=== PATIENT | male | born 1945 | race Hispanic/Latino ===

== ENCOUNTER → 2019-05-29 | Outpatient (CLI) | payer MEDICARE ==
[~2019-05-29] MED LIST: AMATIZA; AVODART0.5 MG PO; CLOPIDOGREL75 MG PO; GABAPENTIN400 MG PO; GLIMEPERIDE; LANTUS100 UNITS/; PANTOPRAZOLE SO40 MG PO; SULFAMETHOXAZO1 EAC1; SYNTHROID100 MCG PO; TAMSULOSIN HCL0.4 MG; VICTOZA
--- NOTE | 2019-05-29 15:23 | Diagnostic Imaging Report ---
EXAMINATION: KNEE LEFT 1-2 VIEWS INDICATION: Osteoarthritis COMPARISON: None FINDINGS: No acute fracture or dislocation. Alignment is anatomic. Mild tricompartmental degenerative changes with mild joint space narrowing and small osteophyte formation. 9 mm osteochondral loose body in the posterior joint space. Large suprapatellar joint effusion. Diffuse arterial atherosclerotic calcifications. IMPRESSION: No acute osseous injury. Mild degenerative changes. Osteochondral loose body posteriorly. Large suprapatellar joint effusion. Signed by: Pam Calzada MD on 05/29/2019 3:19 PM
== END ==
LOC: RAD 14:49
PROVIDERS: ATTEND Family Medicine
DX: M17.12 Unilateral primary osteoarthritis, left knee (principal)

== ENCOUNTER 2021-07-01 16:53 | Emergency (ER) | payer MEDICARE ==
[~2021-07-01] VITALS: Ht 182.9 cm; Wt 89.4 kg
[2021-07-01] MEDS ORDERED: METFORMIN HCL500 MG PO (17:18)
[2021-07-01] MEDS ORDERED: CRESTOR20 MG (17:18)
[2021-07-01] MEDS ORDERED: BASAGLAR K100 UNIT/1 SQ (17:18)
[2021-07-01] MEDS ORDERED: ARICEPT10 MG PO (17:18)
[2021-07-01] MEDS ORDERED: LEVOTHYROXINE112 MCG PO (17:18)
[2021-07-01] MEDS ORDERED: CYMBALTA30 MG (17:18)
[2021-07-01] MEDS ORDERED: ACETAMINOPHEN/CODEINE 300MG - 30MG TAB PO ONE (17:30)
[2021-07-01] MEDS ORDERED: TRAMADOL HCL 50 MG TAB ONE (18:40)
[2021-07-01] MEDS ORDERED: TRAMADOL HCL 50 MG TAB PO ONE (18:45)
[2021-07-01] MEDS ORDERED: ULTRAM 50MG50 MG PO (18:51)
== END 2021-07-01 19:21 | disposition home or self-care (01) ==
LOC: FSED 17:18
DX: S42.201A Unspecified fracture of upper end of right humerus, initial encounter for closed fracture (principal); S20.211A Contusion of right front wall of thorax, initial encounter; W18.30XA Fall on same level, unspecified, initial encounter; Y93.K1 Activity, walking an animal; I10 Essential (primary) hypertension; E11.9 Type 2 diabetes mellitus without complications; E03.9 Hypothyroidism, unspecified; E78.5 Hyperlipidemia, unspecified
CPT/HCPCS: 71250; 74176; 99283

== ENCOUNTER → 2022-02-07 | Outpatient (CLI) | payer MEDICARE ==
[~2022-02-07] MED LIST changes: +ARICEPT10 MG PO; +BASAGLAR K100 UNIT/1 SQ; +CRESTOR20 MG; +CYMBALTA30 MG; +LEVOTHYROXINE112 MCG PO; +METFORMIN HCL500 MG PO; +ULTRAM 50MG50 MG PO
== END ==
LOC: MRI 08:23
PROVIDERS: ATTEND Family Medicine
DX: R27.0 Ataxia, unspecified (principal)
CPT/HCPCS: 70551

== ENCOUNTER → 2023-07-14 | Day surgery (SDC) | payer MEDICARE ==
[2023-07-12 15:48] LABS: BASOPHILS # (AUTO) 0.1 (0.0-0.1); BASOPHILS % 0.6 % (0.0-1.0); EOSINOPHILS # (AUTO) 0.4 (0.0-0.4); EOSINOPHILS % 2.8 % (0.0-6.0); HEMOGLOBIN 12.9 g/dL (14.0-18.0); LYMPHOCYTES # (AUTO) 2.7 (1.0-3.2); LYMPHOCYTES % 21.6 % (18.0-39.1); MEAN CORPUSCULAR HEMOGLOBIN 30.1 pg (28-32); MEAN CORPUSCULAR HGB CONC 34.9 g/dL (31-35); MEAN CORPUSCULAR VOLUME 86.4 fL (81-99); MONOCYTES # (AUTO) 0.6 (0.2-0.8); MONOCYTES % 4.5 % (4.4-11.3); NEUTROPHILS # (AUTO) 8.5 (2.1-6.9); NEUTROPHILS % 69.3 % (38.7-80.0); PLATELET COUNT 241 x10e3/uL (140-360); RED BLOOD COUNT 4.28 x10e6/uL (4.3-5.7); RED CELL DISTRIBUTION WIDTH 12.9 % (11.7-14.4); WHITE BLOOD COUNT 12.35 x10e3/uL (4.8-10.8)
[~2023-07-14] MED LIST changes: +AMLODIPINE BESYL5 MG PO; +ASPIRIN81 MG PO; -CRESTOR20 MG; +CRESTOR20 MG PO; -CYMBALTA30 MG; +CYMBALTA30 MG PO; +FENTANYL CITRATE/PF 100MCG/2 ML INJ ONE; +HYOSCYAMINE SULFATE 0.5 MG/ML INJ ONE; +LACTATED RINGER'S 1,000 ML ONE; +LIDOCAINE HCL 2% LOCAL INJ 5 ML SDV VIAL INJ ONE; +METOPROLOL SUCC25 MG PO; +PHENYLEPHRINE HCL 1% 10 MG/ML VIAL ONE; +PROPOFOL IV EMULSION 10 MG/ML 20 ML VIAL ONE; +TOUJEO SOL300 UNIT/1 SC; +TRAZODONE HCL50 MG PO
[2023-07-14 10:20] VITALS: TEMP 97.7
[2023-07-14 10:55] VITALS: BP 144/79; PULSE 81; RESP 18; O2SAT 99
== END | disposition home or self-care (01) ==
LOC: OR 08:10
PROVIDERS: ATTEND Internal Medicine Gastroenterology
DX: K22.2 Esophageal obstruction (principal); D3A.092 Benign carcinoid tumor of the stomach; D12.2 Benign neoplasm of ascending colon; D12.8 Benign neoplasm of rectum; K29.40 Chronic atrophic gastritis without bleeding; T18.2XXA Foreign body in stomach, initial encounter; K20.90 Esophagitis, unspecified without bleeding; K59.09 Other constipation; K64.8 Other hemorrhoids; Z71.3 Dietary counseling and surveillance; E11.9 Type 2 diabetes mellitus without complications; I10 Essential (primary) hypertension; D64.9 Anemia, unspecified; M06.9 Rheumatoid arthritis, unspecified; F03.90 Unspecified dementia, unspecified severity, without behavioral disturbance, psychotic disturbance, mood disturbance, and anxiety; F41.9 Anxiety disorder, unspecified; F32.A Depression, unspecified; F17.220 Nicotine dependence, chewing tobacco, uncomplicated; Z71.6 Tobacco abuse counseling; Z88.2 Allergy status to sulfonamides; Z01.810 Encounter for preprocedural cardiovascular examination; Z01.812 Encounter for preprocedural laboratory examination; Z79.82 Long term (current) use of aspirin; Z79.4 Long term (current) use of insulin; Z79.84 Long term (current) use of oral hypoglycemic drugs; Z68.27 Body mass index [BMI] 27.0-27.9, adult; Z87.440 Personal history of urinary (tract) infections
CPT/HCPCS: 36415 ×2; 43239; 43450; 45385; 82948; 85025; 93005; C9113; J1980; J2001; J2371; J2704; J3010; J7121; 45378

== ENCOUNTER 2024-07-05 12:22 | Inpatient (IN) | payer MEDICARE ==
[~2024-07-05] VITALS: Ht 182.9 cm; Wt 91.2 kg
[2024-07-05] VITALS (7 sets, daily range): BP systolic 134–185; BP diastolic 59–94; PULSE 74–86; RESP 17–20; TEMP 97.2–98.4; O2SAT 96–100
[~2024-07-05 12:22] MED LIST changes: -FENTANYL CITRATE/PF 100MCG/2 ML INJ ONE; -HYOSCYAMINE SULFATE 0.5 MG/ML INJ ONE; -LACTATED RINGER'S 1,000 ML ONE; -LIDOCAINE HCL 2% LOCAL INJ 5 ML SDV VIAL INJ ONE; -PHENYLEPHRINE HCL 1% 10 MG/ML VIAL ONE; -PROPOFOL IV EMULSION 10 MG/ML 20 ML VIAL ONE
[2024-07-05] MEDS ORDERED: SODIUM CHLORIDE 0.9% 1000ML 1,000 ML IV SCH (12:45)
[2024-07-05] MEDS ORDERED: ONDANSETRON HCL INJ 2MG/ML 2ML 2 MG/ML VIAL IV PRN (13:45)
[2024-07-05] MEDS ORDERED: Morphine 4mg INJECTION 4 MG/ML INJ IV PRN (13:45)
[2024-07-05 13:52] LABS: BASOPHILS # (AUTO) 0.1 (0.0-0.1); BASOPHILS % 0.6 % (0.0-1.0); EOSINOPHILS # (AUTO) 0.1 (0.0-0.4); HEMATOCRIT 35.6 % (38.2-49.6); HEMOGLOBIN 11.7 g/dL (14.0-18.0); LYMPHOCYTES # (AUTO) 1.9 (1.0-3.2); LYMPHOCYTES % 14.5 % (18.0-39.1); MEAN CORPUSCULAR HEMOGLOBIN 30.5 pg (28-32); MEAN CORPUSCULAR HGB CONC 32.9 g/dL (31-35); MONOCYTES # (AUTO) 0.6 (0.2-0.8); MONOCYTES % 4.7 % (4.4-11.3); PLATELET COUNT 204 x10e3/uL (140-360); RED BLOOD COUNT 3.83 x10e6/uL (4.3-5.7); RED CELL DISTRIBUTION WIDTH 13.4 % (11.7-14.4); WHITE BLOOD COUNT 12.86 x10e3/uL (4.8-10.8)
[2024-07-05 14:13] LABS: ALBUMIN 3.2 g/dL (3.5-5.0); ANION GAP 13.9 mmol/L (8-16); BILIRUBIN,TOTAL 0.4 mg/dL (0.2-1.2); CREATININE, SERUM 1.28 mg/dL (0.72-1.25); POTASSIUM 3.9 mmol/L (3.5-5.1); TOTAL PROTEIN 6.5 g/dL (6.5-8.1)
[2024-07-05] MEDS ORDERED: DEXTROSE 50% SYRINGE 50 ML IV PRN (18:30)
[2024-07-05] MEDS: SODIUM CHLORIDE 0.9% 1000ML 1,000 ML IV SCH (19:13)
[2024-07-05] MEDS: ENOXAPARIN SOD INJ 60 MG/0.6 ML SYR SC ONE (20:46)
[2024-07-05] MEDS: DONEPEZIL HCL 5 MG TAB PO SCH (20:47)
[2024-07-05] MEDS: INSULIN LISPRO 100 UNIT/1 ML 3ML VIAL SQ SCH (20:48)
[2024-07-06] VITALS (9 sets, daily range): BP systolic 126–191; BP diastolic 58–80; PULSE 50–97; RESP 18–20; TEMP 97.1–98.4; O2SAT 94–100
[2024-07-06] MEDS: LEVOTHYROXINE SODIUM 125 MCG TAB PO SCH (05:43)
[2024-07-06 05:52] LABS: BASOPHILS # (AUTO) 0.1 (0.0-0.1); BASOPHILS % 0.8 % (0.0-1.0); EOSINOPHILS # (AUTO) 0.3 (0.0-0.4); EOSINOPHILS % 3.1 % (0.0-6.0); HEMATOCRIT 30.3 % (38.2-49.6); LYMPHOCYTES # (AUTO) 1.8 (1.0-3.2); LYMPHOCYTES % 20.8 % (18.0-39.1); MEAN CORPUSCULAR HEMOGLOBIN 30.4 pg (28-32); MEAN CORPUSCULAR VOLUME 92.1 fL (81-99); MONOCYTES # (AUTO) 0.6 (0.2-0.8); MONOCYTES % 6.6 % (4.4-11.3); NEUTROPHILS # (AUTO) 5.7 (2.1-6.9); NEUTROPHILS % 67.5 % (38.7-80.0); PLATELET COUNT 172 x10e3/uL (140-360); RED BLOOD COUNT 3.29 x10e6/uL (4.3-5.7); RED CELL DISTRIBUTION WIDTH 13.2 % (11.7-14.4)
[2024-07-06 06:07] LABS: ANION GAP 12.4 mmol/L (8-16); CALCIUM 8.5 mg/dL (8.4-10.2); CREATININE, SERUM 1.2 mg/dL (0.72-1.25)
[2024-07-06 06:08] LABS: POTASSIUM 3.4 mmol/L (3.5-5.1)
[2024-07-06] MEDS: DULOXETINE HCL 30 MG DELAYED RELEASE PO SCH (09:08)
[2024-07-06] MEDS: METOPROLOL SUCCINATE 25 MG TAB XL PO SCH (09:08)
[2024-07-06] MEDS: AMLODIPINE BESYLATE 5 MG TAB PO SCH (09:08)
[2024-07-06] MEDS: PANTOPRAZOLE SOD 40 MG TABEC PO SCH (09:08)
[2024-07-06] MEDS: HYDRALAZINE HCL 20 MG/ML VIAL IV PRN (20:41)
[2024-07-07] VITALS: BP 163/75; PULSE 95; RESP 20; TEMP 97.7; O2SAT 100
[2024-07-07 04:00] VITALS: BP 155/76; PULSE 83; RESP 18; TEMP 98.1; O2SAT 100
[2024-07-07 09:17] VITALS: BP 181/80; PULSE 85; RESP 20; TEMP 97.3; O2SAT 100
[2024-07-07] MEDS: AMLODIPINE BESYLATE 10 MG TAB PO SCH (11:25)
[2024-07-07 11:59] VITALS: BP 153/78; PULSE 101; RESP 19; TEMP 98.1; O2SAT 95
[2024-07-07] MEDS: ACETAMINOPHEN 325 MG TAB PO PRN (12:38)
[2024-07-07] MEDS ORDERED: SODIUM CHLORIDE 0.9% 100 ML ONE (13:52)
[2024-07-07] MEDS ORDERED: IOPAMIDOL 370 MG/ML 100 ML INFUS..BTL INJ ONE (13:53)
[2024-07-07 16:46] VITALS: BP 166/79; PULSE 87; RESP 20; TEMP 97.6; O2SAT 99
[2024-07-07] MEDS: ENOXAPARIN SOD INJ 40 MG/0.4 ML SYR SC SCH (17:32)
[2024-07-07 20:00] VITALS: BP 164/83; PULSE 90; RESP 20; TEMP 98.1; O2SAT 100
[2024-07-08] VITALS (8 sets, daily range): BP systolic 135–192; BP diastolic 71–99; PULSE 80–110; RESP 18–20; TEMP 97.7–98.3; O2SAT 99–100
[2024-07-08 07:08] LABS: BASOPHILS # (AUTO) 0.1 (0.0-0.1); BASOPHILS % 0.7 % (0.0-1.0); EOSINOPHILS # (AUTO) 0.2 (0.0-0.4); EOSINOPHILS % 2.1 % (0.0-6.0); HEMATOCRIT 33.6 % (38.2-49.6); HEMOGLOBIN 11.2 g/dL (14.0-18.0); LYMPHOCYTES # (AUTO) 1.8 (1.0-3.2); LYMPHOCYTES % 21.5 % (18.0-39.1); MEAN CORPUSCULAR HEMOGLOBIN 30.5 pg (28-32); MEAN CORPUSCULAR HGB CONC 33.3 g/dL (31-35); MEAN CORPUSCULAR VOLUME 91.6 fL (81-99); MONOCYTES # (AUTO) 0.4 (0.2-0.8); MONOCYTES % 5.2 % (4.4-11.3); NEUTROPHILS # (AUTO) 5.9 (2.1-6.9); NEUTROPHILS % 69.4 % (38.7-80.0); PLATELET COUNT 228 x10e3/uL (140-360); RED BLOOD COUNT 3.67 x10e6/uL (4.3-5.7); RED CELL DISTRIBUTION WIDTH 13.2 % (11.7-14.4)
[2024-07-08 07:44] LABS: ANION GAP 15.3 mmol/L (8-16); CALCIUM 9.5 mg/dL (8.4-10.2)
[2024-07-08 07:47] LABS: POTASSIUM 3.3 mmol/L (3.5-5.1)
[2024-07-08] MEDS: SODIUM CHLORIDE 0.9% 500ML 500 ML ONE (08:04)
[2024-07-09] VITALS (11 sets, daily range): BP systolic 130–185; BP diastolic 66–93; PULSE 79–90; RESP 18–20; TEMP 97.7–98.6; O2SAT 96–100
[2024-07-10] VITALS (19 sets, daily range): BP systolic 104–165; BP diastolic 56–95; PULSE 72–95; RESP 18–20; TEMP 97.6–98.7; O2SAT 97–100
[2024-07-10 15:22] LABS: BASOPHILS # (AUTO) 0.1 (0.0-0.1); BASOPHILS % 0.8 % (0.0-1.0); EOSINOPHILS # (AUTO) 0.2 (0.0-0.4); EOSINOPHILS % 2.7 % (0.0-6.0); HEMATOCRIT 31.9 % (38.2-49.6); HEMOGLOBIN 11.1 g/dL (14.0-18.0); LYMPHOCYTES # (AUTO) 1.7 (1.0-3.2); LYMPHOCYTES % 21.1 % (18.0-39.1); MEAN CORPUSCULAR HEMOGLOBIN 30.3 pg (28-32); MEAN CORPUSCULAR HGB CONC 34.8 g/dL (31-35); MEAN CORPUSCULAR VOLUME 87.2 fL (81-99); MONOCYTES # (AUTO) 0.5 (0.2-0.8); MONOCYTES % 6.4 % (4.4-11.3); NEUTROPHILS # (AUTO) 5.3 (2.1-6.9); NEUTROPHILS % 67.9 % (38.7-80.0); PLATELET COUNT 253 x10e3/uL (140-360); RED BLOOD COUNT 3.66 x10e6/uL (4.3-5.7); RED CELL DISTRIBUTION WIDTH 13.4 % (11.7-14.4); WHITE BLOOD COUNT 7.85 x10e3/uL (4.8-10.8)
[2024-07-10 15:47] LABS: ANION GAP 14.7 mmol/L (8-16); CALCIUM 9.6 mg/dL (8.4-10.2); CREATININE, SERUM 1.37 mg/dL (0.72-1.25); POTASSIUM 3.7 mmol/L (3.5-5.1)
[2024-07-10] MEDS: INSULIN GLARGINE 100 UNITS/ML VIAL SQ SCH (21:00)
[2024-07-11] VITALS (8 sets, daily range): BP systolic 105–186; BP diastolic 61–89; PULSE 79–97; RESP 18; TEMP 97.7–98.2; O2SAT 97–100
[2024-07-11] MEDS: INSULIN GLARGINE 100 UNITS/ML VIAL SQ ONE (09:43)
[2024-07-11] MEDS: INSULIN LISPRO 100 UNIT/1 ML 3ML VIAL SQ SCH (13:03)
[2024-07-12] VITALS (9 sets, daily range): BP systolic 107–167; BP diastolic 61–85; PULSE 77–104; RESP 10–18; TEMP 97.5–98.2; O2SAT 95–100
[2024-07-12 05:08] LABS: BASOPHILS # (AUTO) 0.1 (0.0-0.1); BASOPHILS % 0.8 % (0.0-1.0); EOSINOPHILS # (AUTO) 0.2 (0.0-0.4); EOSINOPHILS % 2.6 % (0.0-6.0); HEMOGLOBIN 10.7 g/dL (14.0-18.0); LYMPHOCYTES # (AUTO) 1.9 (1.0-3.2); LYMPHOCYTES % 21.2 % (18.0-39.1); MEAN CORPUSCULAR HGB CONC 32.4 g/dL (31-35); MEAN CORPUSCULAR VOLUME 92.4 fL (81-99); MONOCYTES # (AUTO) 0.6 (0.2-0.8); MONOCYTES % 6.1 % (4.4-11.3); NEUTROPHILS # (AUTO) 6.1 (2.1-6.9); NEUTROPHILS % 68.1 % (38.7-80.0); PLATELET COUNT 257 x10e3/uL (140-360); RED BLOOD COUNT 3.57 x10e6/uL (4.3-5.7); RED CELL DISTRIBUTION WIDTH 13.2 % (11.7-14.4)
[2024-07-12 05:28] LABS: ANION GAP 13.8 mmol/L (8-16); CALCIUM 9.2 mg/dL (8.4-10.2); CREATININE, SERUM 1.14 mg/dL (0.72-1.25); POTASSIUM 3.8 mmol/L (3.5-5.1)
[2024-07-12 06:48] LABS: CHOL/HDL RATIO 5.5 (3.9-4.7)
[2024-07-12] MEDS: ASPIRIN 81 MG CHEW TAB PO SCH (12:06)
[2024-07-12] MEDS: CLOPIDOGREL BISULFATE 75 MG TAB PO SCH (12:06)
[2024-07-12] MEDS ORDERED: LIDOCAINE HCL 2% LOCAL 20 ML VIAL ONE (12:37)
[2024-07-12] MEDS ORDERED: HEPARIN SOD (PORCINE) 1000 UNIT/ML 30ML ONE (12:37)
[2024-07-12] MEDS ORDERED: VERAPAMIL HCL 2.5 MG/ML 2 ML VIAL ONE (12:37)
[2024-07-12] MEDS ORDERED: IOPAMIDOL 370 MG/ML 100 ML INFUS..BTL INJ ONE (12:38)
[2024-07-12] MEDS ORDERED: SODIUM CHLORIDE 0.9% 1000ML 2,000 ML ONE (12:39)
[2024-07-12] MEDS ORDERED: NITROGLYCERIN/D5W 200 MCG/ML 250 ML ONE (12:39)
[2024-07-12] MEDS ORDERED: MIDAZOLAM HCL 2 MG/2 ML VIAL ONE (13:04)
[2024-07-12] MEDS ORDERED: FENTANYL CITRATE/PF 100MCG/2 ML INJ ONE (13:05)
[2024-07-12] MEDS ORDERED: ASPIRIN 325 MG TAB ONE (14:11)
[2024-07-12] MEDS ORDERED: CLOPIDOGREL BISULFATE 75 MG TAB ONE (14:12)
[2024-07-12] MEDS: ATORVASTATIN 40 MG TAB PO SCH (21:43)
[2024-07-13] VITALS: BP 139/56; PULSE 109; RESP 18; TEMP 98.1; O2SAT 100
[2024-07-13 04:00] VITALS: BP 157/80; PULSE 101; RESP 20; TEMP 98.8; O2SAT 96
[2024-07-13 08:30] VITALS: BP 129/75; PULSE 102; RESP 19; TEMP 98.6; O2SAT 99
[2024-07-13] MEDS: HEPARIN SOD/SOD CHLORIDE 2,000 ML ONE (08:59)
[2024-07-13 12:08] VITALS: BP 122/89; PULSE 101; RESP 20; TEMP 98; O2SAT 100
== END 2024-07-13 12:42 | disposition home or self-care (01) | DRG 271 ==
LOC: ER 12:43 → ERHOLD 13:40 → MED/SURG2 15:05
PROVIDERS: ADMIT Internal Medicine; ATTEND Internal Medicine
PROC: 04CN3ZZ Extirpation of Matter from Left Popliteal Artery, Percutaneous Approach (ICD-10-PCS; principal; 2024-07-12)
PROC: 047N3ZZ Dilation of Left Popliteal Artery, Percutaneous Approach (ICD-10-PCS; 2024-07-12)
PROC: 047S3ZZ Dilation of Left Posterior Tibial Artery, Percutaneous Approach (ICD-10-PCS; 2024-07-12)
PROC: 047Q3ZZ Dilation of Left Anterior Tibial Artery, Percutaneous Approach (ICD-10-PCS; 2024-07-12)
PROC: B41D1ZZ Fluoroscopy of Aorta and Bilateral Lower Extremity Arteries using Low Osmolar Contrast (ICD-10-PCS; 2024-07-12)
DX: E11.51 Type 2 diabetes mellitus with diabetic peripheral angiopathy without gangrene (principal); E87.1 Hypo-osmolality and hyponatremia; L03.116 Cellulitis of left lower limb; Z16.12 Extended spectrum beta lactamase (ESBL) resistance; I70.92 Chronic total occlusion of artery of the extremities; E11.621 Type 2 diabetes mellitus with foot ulcer; I70.245 Atherosclerosis of native arteries of left leg with ulceration of other part of foot; I70.201 Unspecified atherosclerosis of native arteries of extremities, right leg; B96.1 Klebsiella pneumoniae [K. pneumoniae] as the cause of diseases classified elsewhere; B95.2 Enterococcus as the cause of diseases classified elsewhere; I25.10 Atherosclerotic heart disease of native coronary artery without angina pectoris; Z95.1 Presence of aortocoronary bypass graft; L97.529 Non-pressure chronic ulcer of other part of left foot with unspecified severity; E11.42 Type 2 diabetes mellitus with diabetic polyneuropathy; I12.9 Hypertensive chronic kidney disease with stage 1 through stage 4 chronic kidney disease, or unspecified chronic kidney disease; E11.22 Type 2 diabetes mellitus with diabetic chronic kidney disease; N18.9 Chronic kidney disease, unspecified; Z79.4 Long term (current) use of insulin; Z79.84 Long term (current) use of oral hypoglycemic drugs; S90.822A Blister (nonthermal), left foot, initial encounter; X58.XXXA Exposure to other specified factors, initial encounter; E87.6 Hypokalemia; D63.1 Anemia in chronic kidney disease; I95.1 Orthostatic hypotension; E78.5 Hyperlipidemia, unspecified; F17.220 Nicotine dependence, chewing tobacco, uncomplicated; F41.8 Other specified anxiety disorders; F03.90 Unspecified dementia, unspecified severity, without behavioral disturbance, psychotic disturbance, mood disturbance, and anxiety; Z71.3 Dietary counseling and surveillance; Z68.27 Body mass index [BMI] 27.0-27.9, adult; Z88.2 Allergy status to sulfonamides; Z79.899 Other long term (current) drug therapy; Z79.82 Long term (current) use of aspirin
CPT/HCPCS: 36217; 36415; 37224; 37228; 37229; 37246; 75630; 75635; 75710; 76937; 80048; 80053; 80061; 82948; 83036; 83605; 85025; 87040; 87071; 87186; 87205; 93306; 93926; 94799; 96372; 99152; 99153; 99252; 99284; C1724; C1725; C1760; C1769; C1887; C1894; J0360; J1644; J1650; J1815; J2003; J2185; J2250; J2270; J2543; J7030; J7040; J7050; Q9967

== ENCOUNTER 2024-07-23 08:25 | Outpatient (RCR) | payer MEDICARE | END 2024-08-09 | LOC: WCC 08:25 | PROVIDERS: ATTEND Nurse Practitioner Family | DX: E11.621 Type 2 diabetes mellitus with foot ulcer (principal); L97.528 Non-pressure chronic ulcer of other part of left foot with other specified severity; L97.428 Non-pressure chronic ulcer of left heel and midfoot with other specified severity | CPT/HCPCS: 36415; 82948 ==